=== PATIENT | male | born 1985 ===

== ENCOUNTER 2017-09-14 18:58 | Emergency (ER) | payer OTHER ==
[2017-09-14 19:19] VITALS: BP 129/78; PULSE 83; RESP 16; TEMP 98.3; O2SAT 99
[2017-09-14] MEDS ORDERED: Lidocaine 5% Patch TD STA (19:28)
--- NOTE | 2017-09-14 19:28 | ED PDOC ---
HPI: Back Time Seen by Provider: 09/14/17 19:20 Chief Complaint (Nursing): Back Pain Chief Complaint (Provider): Back Pain History Per: Patient History/Exam Limitations: no limitations Onset/Duration Of Symptoms: Days (x6) Current Symptoms Are (Timing): Still Present Additional Complaint(s): 31 year old male with previous medical history of chronic back pain, who presents to the emergency department with a complaint of worsening bilateral lower back pain radiating to thighs associated with right buttock pain ongoing since trip to and from [facility] 6 days ago. Denied any calf pain, shortness of breath, chest pain, trauma, saddle paresthesia, difficulty urinating, bloody urine, incontinence, abdominal pain, diarrhea or constipation. Patient stated back pain has been intermittent for the last 2-3 years but has not been evaluated by imaging or specialist. He also reported taking Advil for pain with no relief of symptoms and noted that he normally carries his wallet in his right back pocket. PMD: none provided Past Medical History Reviewed: Historical Data, Nursing Documentation, Vital Signs Vital Signs: Last Vital Signs Temp 98.3 F 09/14/17 19:16 Pulse 83 09/14/17 19:16 Resp 16 09/14/17 19:16 BP 129/78 09/14/17 19:16 Pulse Ox 99 09/14/17 19:16 - Medical History PMH: No Chronic Diseases - Surgical History Surgical History: No Surg Hx - Family History Family History: States: Unknown Family Hx - Social History Current smoker - smoking cessation education provided: No Ex-Smoker (has not smoked in the last 12 months): Yes Alcohol: Occasional Drugs: Denies - Home Medications Home Medications: Ambulatory Orders Medication Instructions Recorded Naproxen 375 mg PO Q8 PRN #21 tab 02/26/15 diaZEpam [Valium] 5 mg PO Q6 PRN #14 tab 02/26/15 oxyCODONE/Acetaminophen [Percocet 1 ea PO Q6 #15 tab 02/26/15 5/325 mg Tab] Cyclobenzaprine [Cyclobenzaprine 10 mg PO Q8 PRN #30 tab 09/14/17 HCl] Lidocaine 5% [Lidoderm] 1 ea TD DAILY PRN #10 patch 09/14/17 Naproxen [Naprosyn] 500 mg PO BID PRN #30 tab 09/14/17 - Allergies Allergies/Adverse Reactions: Allergies Allergy/AdvReac Type Severity Reaction Status Date / Time No Known Allergies Allergy Verified 02/26/15 18:37 Review of Systems ROS Statement: Except As Marked, All Systems Reviewed And Found Negative (lower bilaterally) Cardiovascular: Negative for: Chest Pain Respiratory: Negative for: Shortness of Breath Gastrointestinal: Positive for: Rectal Pain (right-sided buttock). Negative for : Abdominal Pain, Diarrhea, Constipation, Other (trauma, saddle paresthesia) Genitourinary Male: Negative for: Dysuria, Incontinence, Hematuria Musculoskeletal: Positive for: Back Pain, Leg Pain (bilateral thighs). Negative for: Other (calf pain) Physical Exam - Reviewed Nursing Documentation Reviewed: Yes Vital Signs Reviewed: Yes - Physical Exam Appears: Positive for: In Acute Distress (moderatelly painful). Negative for: No Acute Distress Skin: Positive for: Normal Color. Negative for: Rash Gastrointestinal/Abdominal: Positive for: Normal Exam, Soft. Negative for: Tenderness Back: Positive for: Muscle Spasm (bilateral). Negative for: Normal Inspection, L CVA Tenderness, R CVA Tenderness, Vertebral Tenderness Extremity: Negative for: Calf Tenderness (bilaterally), Other (Homans sign) Neurologic/Psych: Positive for: Alert, Oriented - ECG O2 Sat by Pulse Oximetry: 99 (RA) Pulse Ox Interpretation: Normal - Progress Condition: Re-examined, Improved Medical Decision Making Medical Decision Making: Initial Impression: Sciatica pain Initial Plan: * Lidoderm * Toradol 30mg IM * Valium 10mg PO * Xray LS spine Scribe Attestation: Documented by Dunia Child, acting as a scribe for Surinder Dumont PA-C. Provider Scribe Attestation: All medical record entries made by the Scribe were at my direction and personally dictated by me. I have reviewed the chart and agree that the record accurately reflects my personal performance of the history, physical exam, medical decision making, and the department course for this patient. I have also personally directed, reviewed, and agree with the discharge instructions and disposition. Disposition - Clinical Impression Clinical Impression: Sciatica - Patient ED Disposition Is Patient to be Admitted: No - Disposition Referrals: [facility] [place] [Outside] [facility]ly [facility] [Outside] Disposition: Routine/Home Disposition Time: 20:05 Condition: IMPROVED Prescriptions: Cyclobenzaprine [Cyclobenzaprine HCl] 10 mg PO Q8 PRN #30 tab PRN Reason: Muscle Spasm Lidocaine 5% [Lidoderm] 1 ea TD DAILY PRN #10 patch PRN Reason: pain Naproxen [Naprosyn] 500 mg PO BID PRN #30 tab PRN Reason: Pain Instructions: Sciatica (ED) Forms: [employer] (Jordanian) Print Language: LEBANESE
[2017-09-14] MEDS ORDERED: Lidocaine 5% Patch TD ONE (19:34)
--- NOTE | 2017-09-15 11:26 | RAD ---
PROCEDURE: Radiographs of the Lumbar Spine. HISTORY: pain COMPARISON: No prior. FINDINGS: BONES: Normal alignment. No listhesis. No fracture. Minimal levoscoliosis. DISC SPACES: Unremarkable. OTHER FINDINGS: None. IMPRESSION: No fracture/ dislocation. Minimal levoscoliosis.
== END 2017-09-14 20:37 | disposition home or self-care (01) ==
LOC: H.ER 18:58
DX: M54.31 Sciatica, right side (principal); G89.29 Other chronic pain; Z87.891 Personal history of nicotine dependence
CPT/HCPCS: 72100; 96372; 99282; J1885